=== PATIENT | male | born 1950 | race African-American/Black ===

== ENCOUNTER 2018-04-23 04:45 | Emergency (ER) | payer MEDICARE, OTHER ==
[~2018-04-23] VITALS: Ht 167.6 cm; Wt 65.8 kg
[~2018-04-23 04:45] MED LIST: METF-440 PO; OLAN5TAB3 PO; PHEN-410 PO; RISP0.253 PO
[2018-04-23 04:49] VITALS: BP 132/68
[2018-04-23] MEDS ORDERED: HYDROCODONE/APAP 5/325MG 1 EACH TABLET ONE (05:00)
[2018-04-23] MEDS: HYDROCODONE/APAP 5/325MG 1 EACH TABLET PO ONE (05:03)
[2018-04-23] MEDS ORDERED: TDAP [DIPH/PERTUSSIS/TET] 0.5 ML VIAL IM ONE (05:04)
[2018-04-23] MEDS: TDAP [DIPH/PERTUSSIS/TET] 0.5 ML VIAL IM ONE (05:19)
== END 2018-04-23 05:38 | disposition home or self-care (01) ==
LOC: ER 04:53
DX: S01.112A Laceration without foreign body of left eyelid and periocular area, initial encounter (principal); F32.9 Major depressive disorder, single episode, unspecified; F20.9 Schizophrenia, unspecified; I10 Essential (primary) hypertension; E11.9 Type 2 diabetes mellitus without complications; F17.200 Nicotine dependence, unspecified, uncomplicated; Z88.8 Allergy status to other drugs, medicaments and biological substances; Z79.84 Long term (current) use of oral hypoglycemic drugs; W01.198A Fall on same level from slipping, tripping and stumbling with subsequent striking against other object, initial encounter; Y93.89 Activity, other specified; Y92.89 Other specified places as the place of occurrence of the external cause; Y99.8 Other external cause status
CPT/HCPCS: 12013; 90471; 90715; 99283; 99406; A4606; Z7610